=== PATIENT | female | born 1945 | race Caucasian/White ===

== ENCOUNTER 2019-01-05 02:40 | Emergency (ER) | payer OTHER, MEDICARE ==
[~2019-01-05] VITALS: Ht 152.4 cm; Wt 72.6 kg
[2019-01-05 02:49] VITALS: BP_SYST 152
[2019-01-05] MEDS ORDERED: ACETAMINOPHEN 325 MG TABLET PO ONE (04:00)
[2019-01-05] MEDS ORDERED: METHOCARBAMOL 1000 MG/10 ML VIAL IM ONE (04:00)
[2019-01-05] MEDS ORDERED: METHOCARBAMOL 500 MG TABLET PO ONE (04:15)
[2019-01-05 04:31] LABS: BASOPHILS # (AUTO) 0.1 K/uL (0.0-0.2); BASOPHILS % (AUTO) 0.8 % (0.0-2.0); EOSINOPHILS % (AUTO) 0.1 % (0.0-4.0); HEMATOCRIT 43.2 % (36-48); HEMOGLOBIN 13.7 g/dL (12.0-16.0); LYMPHOCYTES # (AUTO) 1.4 K/uL (1.0-5.5); LYMPHOCYTES % (AUTO) 8.5 % (20.5-51.5); MEAN CORPUSCULAR HEMOGLOBIN 26 pg (27-31); MEAN CORPUSCULAR HGB CONC 32 % (32-36); MEAN CORPUSCULAR VOLUME 81 fL (79.0-98.0); MONOCYTES # (AUTO) 0.4 K/uL (0.0-1.0); MONOCYTES % (AUTO) 2.6 % (1.7-9.3); NEUTROPHILS # (AUTO) 14.7 K/uL (1.8-7.7); PLATELET COUNT (AUTO) 368 K/uL (130-430); RED BLOOD CELL COUNT(AUTO) 5.34 MIL/uL (4.2-6.2); WHITE BLOOD COUNT (AUTO) 16.7 K/uL (4.8-10.8)
[2019-01-05 04:42] LABS: ANION GAP 12 (5-15); CALCIUM 9.3 mg/dL (8.4-11.0); CHLORIDE 100 mmol/L (98-107); CREATININE 0.83 mg/dL (0.55-1.30); GLUCOSE 120 mg/dL (70-99); POTASSIUM 4.1 mmol/L (3.5-5.1); SODIUM SERUM 136 mmol/L (136-145); UREA NITROGEN, BLOOD 13 mg/dL (8-21)
[2019-01-05 04:48] LABS: ALANINE AMINOTRANSFERASE 19 U/L (12-78); ALBUMIN 3.9 g/dL (3.4-4.8); ASPARTATE AMINOTRANSFERASE 16 U/L (10-37); TOTAL BILIRUBIN 0.2 mg/dL (0.0-1.0)
[2019-01-05 05:20] LABS: BILIRUBIN,URINE NEGATIVE (NEGATIVE); BLOOD, URINE 2+ (NEGATIVE); CLARITY/URINE CLEAR (CLEAR); COLOR,URINE YELLOW (YELLOW); GLUCOSE,URINE NEGATIVE (NEGATIVE); KETONES,URINE TRACE (NEGATIVE); LEUKOCYTE ESTERASE ,URINE 1+ (NEGATIVE); NITRITE, URINE NEGATIVE (NEGATIVE); PROTEIN URINE NEGATIVE (NEGATIVE); UROBILINOGEN,URINE 0.2 (0.2-1.0)
[2019-01-05 05:25] LABS: BACTERIA,URINE FEW /HPF (None Seen)
[2019-01-05] MEDS ORDERED: cefTRIAXone 1 GM VIAL IM ONE (06:00)
[2019-01-05] MEDS ORDERED: CIPROFLOXACIN HCL 500 MG TABLET PO ONE (06:00)
[2019-01-05] MEDS ORDERED: traMADol HCL HCL 50 MG TABLET (ULTRAM) PO ONE (06:45)
[2019-01-05] MEDS ORDERED: MORPHINE 4 MG/ML INJ. SYRINGE IVP ONE ×2 (07:45→08:45)
[2019-01-05] MEDS ORDERED: DIAZEPAM 10 MG/2 ML DISP.SYRIN IVP ONE (09:30)
[2019-01-05] MEDS ORDERED: DIAZEPAM 5 MG TABLET (VALIUM) PO ONE (09:45)
[2019-01-05] MEDS ORDERED: fentaNYL CITRATE/PF 100 MCG/2 ML AMP IVP ONE (11:00)
[2019-01-05 12:21] VITALS: BP_SYST 148
== END 2019-01-05 12:21 | disposition home or self-care (01) ==
LOC: SED 02:40
DX: M47.896 Other spondylosis, lumbar region (principal); R03.0 Elevated blood-pressure reading, without diagnosis of hypertension; Z88.6 Allergy status to analgesic agent; Z91.041 Radiographic dye allergy status
CPT/HCPCS: 36415; 72100; 72131; 74176; 80053; 81000; 83605; 85025; 87040; 87086; 96374; 96375; 96376; 99284; J2270; J3010